=== PATIENT | female | born 1985 | race Caucasian/White ===

== ENCOUNTER 2016-12-25 19:20 | Emergency (ER) ==
[2016-12-25] MEDS ORDERED: LIDOCAINE 1 % AMP 5 ML (SUTURES) SQ STA (19:21)
[2016-12-25 19:30] VITALS: BP 124/82; TEMP 99.4; BMI 24.3
--- NOTE | 2016-12-25 19:39 | ED.PDOC ---
General ED Provider: Dr. LUZ MARINA SIMON Chief Complaint: Hand Laceration Stated Complaint: Pt comes to the Er with Right finger and hand laceration that occured at home while washing dishes. Had some bleeding that was controlled with pressure. Time Seen by Physician: 19:37 Mode of Arrival: Walk-In Information Source: Patient Exam Limitations: No limitations Nursing and Triage Documentation Reviewed and Agree: Yes Skin Complaint Exam - Laceration/Abrasion/Hand Complaint/Exam Location of Injury: Right, Hand, Digit #1 Mechanism of Injury: Laceration Onset/Duration: 1 hour ago Symptoms Are: Still present Initial Severity: Moderate Current Severity: Moderate Aggravating: Movement Alleviating: Compression Associated Signs and Symptoms: Denies: Fever, Chills, Erythema, Numbness, Tingling Related History: Reports: Right hand dominant Hand Picture: 1 - 1 cm laceartion from the base of the digit to the hand with some bleeding that is controlled with pressure. Differential Diagnoses: Laceration Review of Systems - Review Of Systems Constitutional: Reports: No symptoms Skin: Reports: Other All Other Systems: Reviewed and Negative Past Medical History - Past Medical History Previously Healthy: Yes Endocrine: Reports: DM 2 (gestational ) Cardiovascular: Reports: None Respiratory: Reports: None Hematological: Reports: None Gastrointestinal: Reports: None Genitourinary: Reports: Kidney stones, Other ( loss x1) Neuro/Psych: Reports: None Musculoskeletal: Reports: None Cancer: Reports: None Last Menstrual Period: 4 mo, on birthcontrol implant Other Pertinent Past Medical History: gestational diabetes - Surgical History General Surgical History: Reports: None - Family History Family History: Reports: None - Social History Smoking Status: Current every day smoker, Heavy tobacco smoker Hx Substance Use: No Alcohol Screening: None - Immunizations Tetanus Shot up to Date: Yes Physical Exam - Physical Exam Appearance: Ill-appearing, Well-nourished Ill-appearing: Mild Pain Distress: Moderate Respiratory: Airway patent, Breath sounds clear, Breath sounds equal, Respirations nonlabored Cardiovascular: RRR, Pulses normal, No rub, No murmur GI/: Soft, Nontender, No masses, Bowel sounds normal, No Organomegaly Musculoskeletal: Normal strength, ROM intact, No edema, No calf tenderness Skin: Warm, Dry, Normal color Neurological: Sensation intact, Motor intact, Reflexes intact, Cranial nerves intact, Alert, Oriented Psychiatric: Anxious Procedures - Laceration/Wound Repair finger laceration Wound Description: Linear Wound Length (cm): 2 Wound Width: 0.3 Wound Depth: 0.5 Wound Explored: Clean Wound Irrigated: No Wound Prep: Hibiclens Anesthesia: Lidocaine Wound Debrided: Minimal Wound Margins: Flaps aligned Wound Repaired With: Sutures Suture Size and Type: 4.0 Nylone Number of Sutures: 9 (Running ) Progress: Tolerated procedure well Critical Care Note - Critical Care Note Total Time (mins): 0 Course - Course Orders, Labs, Meds: Orders Category Date Time Status Wound [ED WOUND CARE] .ONCE EMERGENCY 12/25/16 19:21 Active Lidocaine HCl/Pf [Lidocaine 1 % Amp 5 ml (Sutures)] MEDS 12/25/16 19:21 Discontinued 5 ml SQ ONCE STA Medications Discontinued Medications Generic Name Dose Route Start Last Admin Trade Name Liana PRN Reason Stop Dose Admin Lidocaine HCl 5 ml 12/25/16 19:21 12/25/16 19:35 Lidocaine 1 % Amp 5 Ml (Sutures) SQ 12/25/16 19:22 5 ml ONCE STA Administration Vital Signs: Temp Pulse Resp BP Pulse Ox 12/25/16 19:25 99.4 F 105 H 20 124/82 98 Departure - Departure Time of Disposition: 19:37 Disposition: HOME SELF-CARE Discharge Problem: Laceration of hand Instructions: Laceration (ED) Condition: Stable Pt referred to PMD for follow-up: Yes Additional Instructions: Have sutures removed in 10 days Keep area clean and Dry Apply neosporin to area twice a day Allergies/Adverse Reactions: Allergies bee venom protein (honey bee) Adverse Reaction (Verified 12/25/16 19:33) Penicillins Adverse Reaction (Verified 12/25/16 19:32) shrimp Adverse Reaction (Verified 12/25/16 19:33) Home Medications: Ambulatory Orders Etonogestrel [Nexplanon] 68 mg SQ DIRECTED 12/25/16 Disposition Discussed With: Patient
== END 2016-12-25 19:52 | disposition home or self-care (01) ==
LOC: ED 19:20
DX: S61.210A Laceration without foreign body of right index finger without damage to nail, initial encounter (principal); S61.411A Laceration without foreign body of right hand, initial encounter; W45.8XXA Other foreign body or object entering through skin, initial encounter; F17.210 Nicotine dependence, cigarettes, uncomplicated
CPT/HCPCS: 99283